=== PATIENT | female | born 1960 | race Two or more races ===

== ENCOUNTER 2017-08-06 19:27 | Emergency (ER) | payer BC, MEDICAID, OTHER ==
[~2017-08-06] VITALS: Ht 167.6 cm; Wt 104.3 kg
[~2017-08-06 19:27] MED LIST: ASPI-1169 PO; FURO20TA4 PO; METO25TA20 PO; SIMV20TA6 PO; VALS160T2 PO
--- NOTE | 2017-08-06 19:30 | NUR ---
PT BIB [facility] WITH A C/O N/V BED PLACEMENT COORDINATOR AND HIGH BP BED PLACEMENT COORDINATOR. PT IS DRY HEAVING AND APPEARS ANXIOUS. PT WAS PLACED ON THE MONITOR AND CONTINUOUS PULSE OX.
[2017-08-06] MEDS ORDERED: ONDANSETRON HCL/PF 4 MG/2 ML VIAL ONE (19:53)
[2017-08-06] MEDS ORDERED: IV NS 0.9% 500 ML BAG IV ONE (20:00)
[2017-08-06] MEDS ORDERED: ONDANSETRON HCL/PF 4 MG/2 ML VIAL IVP ONE (20:00)
[2017-08-06] MEDS ORDERED: LORAZEPAM INJ 2 MG/ML VIAL IV ONE (20:00)
[2017-08-06] MEDS ORDERED: LORAZEPAM INJ 2 MG/ML VIAL ONE (20:00)
[2017-08-06 20:07] LABS: BASOPHILS # (AUTO) 0.1 /CMM (0.0-0.2); EOSINOPHILS % (AUTO) 1.4 % (0.0-6.0); HEMATOCRIT 40 % (33-45); HEMOGLOBIN 13.5 g/dL (11.5-14.8); LYMPHOCYTES # (AUTO) 3.7 /CMM (0.8-4.8); MEAN CORPUSCULAR HGB CONC 34 g/dl (31.0-36.0); MEAN CORPUSCULAR VOLUME 83 fL (82-100); MONOCYTES # (AUTO) 0.5 /CMM (0.1-1.30); MONOCYTES % (AUTO) 3.6 % (2.0-12.0); NEUTROPHILS # (AUTO) 8.3 /CMM (1.8-8.9); PLATELET COUNT (AUTO) 300 /CMM (150-450); RDW COEFFICIENT OF VARIATION 13.4 (11.5-15.0); RED BLOOD CELL COUNT(AUTO) 4.82 MIL/uL (4.0-5.2); WHITE BLOOD COUNT (AUTO) 12.8 K/uL (4.3-11.0)
[2017-08-06 20:17] LABS: CREATININE 0.7 mg/dL (0.6-1.3); POTASSIUM 3.6 mmol/L (3.5-5.1)
[2017-08-06 20:23] LABS: BILIRUBIN,DIRECT 0.1 mg/dL (0.0-0.2); BILIRUBIN,TOTAL 0.4 mg/dL (0.2-1.0); TOTAL PROTEIN, SERUM 9.7 g/dL (6.4-8.2)
--- NOTE | 2017-08-06 20:34 | NUR ---
GREG PAC IS AT THE BEDSIDE SPEAKING TO THE PT AND HER FAMILY.
--- NOTE | 2017-08-06 20:55 | NUR ---
PT APPEARS TO BE RESTING COMFORTABLY WITH NO S/S OF PAIN OR DISTRESS.
[2017-08-06 21:47] VITALS: BP 123/73
== END 2017-08-06 21:48 | disposition home or self-care (01) ==
LOC: ER 19:28
DX: R11.2 Nausea with vomiting, unspecified (principal); F41.9 Anxiety disorder, unspecified; Z79.82 Long term (current) use of aspirin
CPT/HCPCS: 36415; 71045-TC; 80048-TC; 80076-TC; 83690-TC; 85025-TC; A4606; J2060; J2405; J7040; Z7610